=== PATIENT | male | born 1950 | race Caucasian/White ===

== ENCOUNTER 2018-09-27 07:47 | Day surgery (SDC) | payer MEDICARE, MEDICAID ==
[~2018-09-27 07:47] MED LIST: Lactated Ringers 1,000 ML IV SCH; Sodium Chloride 0.9% 10 ML Syringe FLUSH PRN; ceFAZolin 1 GM Vial IVPUSH ONE
[2018-09-27] MEDS ORDERED: Bupivacaine 0.25%/EPINEPHrine 1:200,000 30 ML SDV ONE (09:20)
[2018-09-27] MEDS ORDERED: ceFAZolin 1 GM Vial ONE (09:35)
[2018-09-27] MEDS ORDERED: Glycopyrrolate 0.2 MG/ML 2 ML SDV ONE (09:35)
[2018-09-27] MEDS ORDERED: fentaNYL 100 MCG/2 ML SDV ONE (09:35)
[2018-09-27] MEDS ORDERED: Midazolam 1 MG/ML 2 ML SDV ONE (09:36)
[2018-09-27] MEDS ORDERED: Ketamine 200 MG/20 ML MDV ONE (09:36)
[2018-09-27] MEDS ORDERED: Propofol 200 MG/20 ML SDV ONE (09:36)
[2018-09-27] MEDS ORDERED: Ondansetron 4 MG/2 ML SDV ONE (10:13)
[2018-09-27] MEDS ORDERED: Bacitracin Oint 1 GM U/D Packet ONE (10:20)
[2018-09-27] MEDS ORDERED: Bupivacaine 0.25%/EPINEPHrine 1:200,000 30 ML SDV INJECT ONE ×2 (10:20)
[2018-09-27] MEDS ORDERED: Ibuprofen 200 MG Tab PO PRN (10:57)
[2018-09-27] MEDS ORDERED: Morphine 2 MG/ML Syringe IVPUSH PRN (10:57)
--- NOTE | 2018-09-27 10:58 | OR ---
PREOPERATIVE DIAGNOSIS: Right lower lip cancer. POSTOPERATIVE DIAGNOSIS: Right lower lip cancer. PROCEDURE PROPOSED: Wedge resection of right lower lip. PROCEDURE DONE: Wedge resection of right lower lip. INDICATIONS: This is a 67-year-old gentleman, who has an obvious lesion on his right lower lip that is extremely suspicious for a lip cancer. It is felt that he is best served just to have this removed by wedge resection when he came in for recommended procedure. TECHNIQUE: The patient was brought to the operative suite, placed in the supine position. He was given MAC sedation per [employer], and his right lower lip area was then sterilely prepped and draped. The skin was then marked to do a pie-shaped wedge resection of the lesion. The lesion itself measured about 1.5 cm across. I took some normal lip maybe 2 mm on each side beyond the edge of the abnormality. The skin was marked both externally and internally. The area was then locally anesthetized with 0.25% Marcaine with epinephrine. The incision was then made with a 15 scalpel on the inner lip and outer lip. I then used cautery to dissect through the lip muscle and soft tissue, taking out a pie- shaped piece of tissue which was submitted for pathologic examination. Hemostasis was obtained with cautery, and the lip muscle and soft tissue were reapproximated with interrupted 3-0 chromic internally. The inner mucous membrane of the lip was reapproximated with inverted stitches of 3-0 chromic. I then reapproximated the vermilion border with a stitch of 5-0 Ethilon and reapproximated the external skin incision with interrupted 5-0 Ethilon. I then did the remainder of the lip that is visible to the outside with inverting and interrupted 3-0 chromic sutures until everything was back together nicely. This incision was then covered with antibiotic ointment, and there was minimal blood loss. He was then taken back to [facility] in good condition. SCM: 09/27/2018 10:32:56 MODL: 09/27/2018 10:50:46 /[id number]
== END 2018-09-27 11:25 | disposition home or self-care (01) ==
LOC: VM.SDS 07:47
PROVIDERS: ATTEND Surgery
DX: C44.00 Unspecified malignant neoplasm of skin of lip (principal); L57.0 Actinic keratosis; I10 Essential (primary) hypertension; F17.210 Nicotine dependence, cigarettes, uncomplicated; Z79.82 Long term (current) use of aspirin; Z79.899 Other long term (current) drug therapy
CPT/HCPCS: A9270-GY; J0690; J2250; J2405; J2704; J3010; J3490; J7120

== ENCOUNTER 2018-11-18 08:35 | Day surgery (SDC) | payer MEDICARE, MEDICAID ==
[~2018-11-18 08:35] MED LIST changes: -Sodium Chloride 0.9% 10 ML Syringe FLUSH PRN; -ceFAZolin 1 GM Vial IVPUSH ONE
[2018-11-18] MEDS ORDERED: fentaNYL 100 MCG/2 ML SDV ONE (10:33)
[2018-11-18] MEDS ORDERED: Propofol 200 MG/20 ML SDV ONE ×3 (10:33→11:55)
[2018-11-18] MEDS ORDERED: Midazolam 1 MG/ML 2 ML SDV ONE (12:31)
--- NOTE | 2018-11-18 17:56 | OR ---
DATE OF SURGERY: 11/18/2018. REFERRING PROVIDER: SAMANTHA Maher. PRE-OPERATIVE DIAGNOSES: Positive fit stool card. This is the patient's first colonoscopy. He denies any known family history of colon cancer. POST-OPERATIVE DIAGNOSES: 1. Total of 10 polyps removed (6 using hot snare and cautery and 4 using cold forceps). a. 1.5 cm sessile polyp in the transverse colon at about 150 cm once removing the scope. This was removed using hot snare, then the base was cauterized. b. 2 mm polyp at 110 cm, removed using cold forceps. c. 4 mm polyp at 100 cm, removed using cold forceps. d. 1 cm sessile polyp at 85 cm, removed using hot snare. e. 3 mm polyp at 80 cm, removed using cold forceps. f. 8 mm and 6 mm polyps at 60 cm, both removed using hot snare. g. 4 mm polyp at 55 cm, removed using cold forceps. h. 8 mm firmer polyp at 20 cm, removed using hot snare. This left somewhat of a divot present, so 1 clip was placed to approximate the colonic mucosa. i. 1 cm sessile polyp at 10 cm, removed using several passes of hot snare. 2. Mild internal hemorrhoids, not acutely inflamed. 3. Normal distal ileum. PROCEDURE: Colonoscopy with polypectomy x10 (6 using hot snare/cautery and 4 using cold forceps). SURGEON: Ayo Figueroa M.D. ANESTHESIA: Monitored anesthesia care. BOWEL PREP: Good. Linda is a 67-year-old male who was brought to the endoscopy suite after discussing risks and benefits of the procedure. Informed consent was obtained for conscious sedation and colonoscopy with or without biopsy and/or polypectomy. We also discussed possibility of missed lesions. Pre-procedure exam was unremarkable. IV, oxygen, and monitors were placed. The patient was placed in the left lateral decubitus position. Sedation was administered and a digital rectal exam was performed and unremarkable. Colonoscope was passed into the rectum and slowly advanced all the way to the cecum. Cecum was viewed and photographed. Ileocecal valve was intubated and distal ileum was normal in appearance. The colonoscope was slowly withdrawn and the mucosa was closed observed in a direct circumferential manner. The ascending colon was unremarkable. The proximal transverse colon revealed 1.5 cm sessile polyp at 150 cm, removed using several passes of hot snare, then the base of this was cauterized using the tip of the snare. The mid to distal transverse colon revealed 2 mm polyp at 110 cm and 4 mm polyp at 100 cm, both removed using cold forceps. In the descending colon, there was a 1 cm sessile polyp at 85 cm and 3 mm polyp at 80 cm, first one of those removed using hot snare and second using cold forceps. At 60 cm, 8 mm and 6 mm polyps removed using hot snare. At 55 cm, there was a 4 mm polyp, removed using cold forceps. The sigmoid colon revealed 8 mm firmer polyp, removed using hot snare. This did leave somewhat of a divot present. Therefore, 1 clip was placed to approximate the mucosal edges, this was placed in good position. No bleeding noted. At the rectosigmoid junction, there was another sessile 1 cm polyp, removed using several passes of hot snare. Retroflexion was performed and rectal mucosa revealed some mild internal hemorrhoids. Scope was removed. The patient tolerated the procedure well. The patient was monitored until that baseline status. Discharge instructions were reviewed and the patient was discharged in good condition. COMPLICATIONS: None. TOTAL TIME: 63 minutes. ESTIMATED BLOOD LOSS: 2 to 3 mL. RECOMMENDATIONS/FOLLOW-UP: We will await results of path report to determine ideal followup interval. We will have the patient hold his aspirin for about a week. He had been holding his aspirin for about 4 days previous to the procedure and did have a slight tendency to bleeding a little bit easier after polypectomies. I would like to kindly thank Sony Coleman for this referral. DMB: 11/18/2018 13:44:10 MODL: 11/18/2018 17:47:40 /[id number]
== END 2018-11-18 13:45 | disposition home or self-care (01) ==
LOC: VM.SDS 08:35
PROVIDERS: ATTEND Family Medicine
DX: D12.3 Benign neoplasm of transverse colon (principal); D12.4 Benign neoplasm of descending colon; D12.5 Benign neoplasm of sigmoid colon; D12.7 Benign neoplasm of rectosigmoid junction; K64.8 Other hemorrhoids; K63.89 Other specified diseases of intestine; I10 Essential (primary) hypertension; E78.00 Pure hypercholesterolemia, unspecified; F32.9 Major depressive disorder, single episode, unspecified; F17.210 Nicotine dependence, cigarettes, uncomplicated; Z79.82 Long term (current) use of aspirin; Z79.899 Other long term (current) drug therapy
CPT/HCPCS: 00811; 45380; 45385; 88305; 88341; 88342; J2250; J2704; J3010; J7120; 45384

== ENCOUNTER 2019-04-26 05:44 | Emergency (ER) | payer MEDICARE, MEDICAID ==
--- NOTE | 2019-04-26 06:21 | EDM.PDOC ---
ED HPI GENERAL MEDICAL PROBLEM - General Chief Complaint: General Stated Complaint: Weakness Time Seen by Provider: 04/26/19 06:13 Source of Information: Reports: Patient, EMS - History of Present Illness INITIAL COMMENTS - FREE TEXT/NARRATIVE: Linda is a 68 y/o male who is brought to the ER by EMS after his friend arrived to his house and he had complained of anterior pain between his shoulders that went across his chest. The pain had started last night while he was sitting and was constant most of the night until 0400. He rated it 8/10 at it's worst. He was a bit nauseated, but did not vomit. He denies ever having pain like this before. He did take an Advil PM at 0430 and on arrival to the ER he thinks the pain is actually gone now. The pain did keep him awake most of the night though. He also reports that he has had ongoing exercise intolerance over the last few weeks where he becomes a bit short of breath and even dizzy at times when he walks even a short distance. He has not seen cardiology. He did take ASA 325mg about 0430 this AM with the rest of his morning medications. His friend called [phone] when she stopped at his house this AM. 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 Other Dermatologic History: RIGHT LOWER LIP LESION - Past Surgical History Respiratory Surgical History: Reports: None GI Surgical History: Reports: Other (See Below) Other GI Surgeries/Procedures: splenectomy Endocrine Surgical History: Reports: None Other Oncologic Surgeries/Procedures: excision of SCC right lower lip Social & Family History - Family History Cardiac: Reports: NM (father) - Tobacco Use Smoking Status *Q: Current Every Day Smoker Tobacco Use Within Last Twelve Months: Cigarettes Years of Tobacco use: 50 Packs/Tins Daily Comment: 0.25 ED ROS GENERAL - Review of Systems Review Of Systems: See Below Constitutional: Reports: Weakness HEENT: Reports: No Symptoms Respiratory: Reports: Shortness of Breath (after exercise) Cardiovascular: Reports: Chest Pain, Lightheadedness (recently with exercise) Endocrine: Reports: Fatigue GI/Abdominal: Reports: Nausea : Reports: No Symptoms Musculoskeletal: Reports: Shoulder Pain Skin: Reports: No Symptoms Neurological: Reports: Dizziness Psychiatric: Reports: No Symptoms Hematologic/Lymphatic: Reports: No Symptoms Immunologic: Reports: No Symptoms ED EXAM, GENERAL - Physical Exam Exam: See Below General Appearance: Alert, WD/WN, No Apparent Distress Ears: Hearing Grossly Normal Nose: Normal Inspection, Normal Mucosa Throat/Mouth: Normal Inspection, Normal Lips, Normal Teeth, Normal Voice Head: Atraumatic, Normocephalic Neck: Normal Inspection, Supple, Non-Tender Respiratory/Chest: No Respiratory Distress, Lungs Clear, Normal Breath Sounds, Chest Non-Tender Cardiovascular: Regular Rate, Rhythm, No Edema, No Murmur GI/Abdominal: Normal Bowel Sounds, Soft, Non-Tender, No Organomegaly, No Distention, Other (well healed midline surgical scar) (Male) Exam: Deferred Rectal (Males) Exam: Deferred Back Exam: Normal Inspection Extremities: Normal Inspection, Normal Range of Motion, No Pedal Edema, Normal Capillary Refill, Other Neurological: Oriented, CN II-XII Intact, Normal Cognition, Normal Gait, No Motor/Sensory Deficits Psychiatric: Normal Affect, Normal Mood Skin Exam: Warm, Dry, Intact, Normal Color, No Rash Lymphatic: No Adenopathy EKG INTERPRETATION EKG Date: 04/26/19 Time: 06:22 Rhythm: NSR Rate (Beats/Min): 54 Mercer: Normal P-Wave: Present QRS: Normal ST-T: Normal QT: Normal EKG Interpretation Comments: Sinus Bradycardia Course - Vital Signs Text/Narrative:: 0613 The patient was seen by the SHEEP SORTER. Labs, CXR, and EKG were ordered. He had taken Aspirin prior to arrival so it was not repeated. 0745 Lab notified SHEEP SORTER that Troponin is critically high at 47.8. Patient reports he is starting to have midsternal chest pain return now. [facility] contacted. EKGs sent for review. Nitro 0.4mg SL given. 0800 BP dropped to 70/40s from Nitro, NS bolus started. Pain 3/10. Morphine 2mg IVP. 0812 SHEEP SORTER contacted [facility] again with patient status and spoke with Dr Etienne. Reviewed EKGs. Heparin 5000units IV bolus given. Analytics Analyst did not want additional gtt started. STEMI protocol initiated and patient accepted for transfer to the [facility]. 0815 Patient a bit nauseated. Zofran 4mg IVP ordered. Oxygen started. Pain currently 2/10. BP slightly improving, but quite labile in the 80-90s systolically. Patient packaged for transfer and left with [facility] in guarded condition. Last Recorded V/S: Last Vital Signs Temp 36.3 C 04/26/19 08:24 Pulse 60 04/26/19 08:24 Resp 16 04/26/19 08:24 BP 82/61 L 04/26/19 08:24 Pulse Ox 98 04/26/19 08:24 - Orders/Labs/Meds Orders: Active Orders 24 hr Category Date Time Status Cardiac Monitoring [RC] . DIRECTED Care 04/26/19 07:54 Ordered EKG Documentation Completion [RC] STAT Care 04/26/19 06:22 Ordered CBC W/O DIFF,HEMOGRAM [HEME] Q3D Lab 04/27/19 07:00 Ordered CBC W/O DIFF,HEMOGRAM [HEME] Q3D Lab 04/30/19 07:00 Ordered CBC W/O DIFF,HEMOGRAM [HEME] Q3D Lab 05/03/19 07:00 Ordered CBC W/O DIFF,HEMOGRAM [HEME] Q3D Lab 05/06/19 07:00 Ordered CBC W/O DIFF,HEMOGRAM [HEME] Q3D Lab 05/09/19 07:00 Ordered CBC W/O DIFF,HEMOGRAM [HEME] Q3D Lab 05/12/19 07:00 Ordered CBC W/O DIFF,HEMOGRAM [HEME] Q3D Lab 05/15/19 07:00 Ordered Morphine Med 04/26/19 07:54 Ordered 2 mg IVPUSH Q10M PRN Nitroglycerin [Nitrostat] Med 04/26/19 07:54 Ordered 0.4 mg SL Q5M PRN Sodium Chloride 0.9% @ 100 MLS/HR(1000ml) Med 04/26/19 08:00 Ordered Sodium Chloride 0.9% [Normal Saline] 1,000 ml IV ASDIRECTED Medication Orders Sodium Chloride (Normal Saline) 1,000 mls @ 100 mls/hr IV ASDIRECTED SUSHMA Last Admin: 04/26/19 07:55 Dose: 100 mls/hr Morphine Sulfate (Morphine) 2 mg IVPUSH Q10M PRN PRN Reason: Chest Pain Stop: 04/27/19 07:55 Last Admin: 04/26/19 08:07 Dose: 2 mg Nitroglycerin (Nitrostat) 0.4 mg SL Q5M PRN PRN Reason: Chest Pain Stop: 04/27/19 07:54 Last Admin: 04/26/19 07:52 Dose: 0.4 mg Labs: Laboratory Tests 04/26/19 04/26/19 04/26/19 Range/Units 06:35 06:35 06:35 WBC 15.9 H (4.0-10.0) x10^3/uL RBC 4.16 L (4.5-6.0) x10^6/uL Hgb 11.9 L (14.0-18.0) g/dL Hct 36.2 L (40.0-52.0) % MCV 87.0 (78.0-93.0) fL MCH 28.6 (26.0-32.0) pg MCHC 32.9 (32.0-36.0) g/dL RDW Coeff of Helene 14.9 (10.0-15.0) % Plt Count 375 (130-400) x10^3/uL Add Manual Diff Yes Neutrophils % (Manual) 55 (50-80) % Band Neutrophils % 2 (0-6) % Lymphocytes % (Manual) 34 (25-50) % Monocytes % (Manual) 7 (2-11) % Eosinophils % (Manual) 2 (0-4) % Platelet Estimate Adequate Giant Platelets Few H PT 10.5 (10.0-12.8) SEC INR 0.9 L (2.0-3.5) APTT 23.0 L (24.0-36.0) SEC Sodium 139 (136-145) mmol/L Potassium 4.7 (3.5-5.1) mmol/L Chloride 103 (98-107) mmol/L Carbon Dioxide 24 (21-32) mmol/L Anion Gap 16.7 (10-20) mmol/L BUN 19 H (7-18) mg/dL Creatinine 1.7 H (0.70-1.30) mg/dL Est Cr Clr Drug Dosing 44.29 mL/min Estimated GFR (MDRD) 40 Glucose 118 H (74-106) mg/dL Calcium 8.8 (8.5-10.1) mg/dL Corrected Calcium 9.52 (8.5-10.1) mg/dL Total Bilirubin 0.5 (0.2-1.0) mg/dL AST 207 H (15-37) U/L ALT 36 (16-63) U/L Alkaline Phosphatase 90 (46-116) U/L Troponin I 47.805 H* (<=0.056) ng/mL Total Protein 7.2 (6.4-8.2) g/dL Albumin 3.1 L (3.4-5.0) g/dL Globulin 4.1 Albumin/Globulin Ratio 0.76 Meds: Medications Generic Name Dose Route Start Last Admin Trade Name Freq PRN Reason Stop Dose Admin Sodium Chloride 1,000 mls @ 100 mls/hr 04/26/19 08:00 04/26/19 07:55 Normal Saline IV 100 mls/hr ASDIRECTED SUSHMA Administration Morphine Sulfate 2 mg 04/26/19 07:54 04/26/19 08:07 Morphine IVPUSH 04/27/19 07:55 2 mg Q10M PRN Administration Chest Pain Nitroglycerin 0.4 mg 04/26/19 07:54 04/26/19 07:52 Nitrostat SL 04/27/19 07:54 0.4 mg Q5M PRN Administration Chest Pain Discontinued Medications Generic Name Dose Route Start Last Admin Trade Name Freq PRN Reason Stop Dose Admin Heparin Sodium (Porcine) Confirm 04/26/19 08:28 04/26/19 08:29 Heparin Sodium Administered 04/26/19 08:29 Not Given Dose 5,000 units .ROUTE .STK-MED ONE Heparin Sodium (Porcine) 5,000 units 04/26/19 08:21 04/26/19 08:23 Heparin Sodium IVPUSH 04/26/19 08:22 5,000 units ONETIME ONE Administration Ondansetron HCl 4 mg 04/26/19 08:11 04/26/19 08:16 Zofran IVPUSH 04/26/19 08:12 4 mg ONETIME ONE Administration - Radiology Interpretation Free Text/Narrative:: CXR=LLL infiltrate Departure - Departure Time of Disposition: 08:15 Disposition: DC/Tfer to Acute Hospital 02 Condition: Good Clinical Impression: NM, Myocardial infarction, Pneumonia, STEMI (ST elevation myocardial infarction ) - Discharge Information *PRESCRIPTION DRUG MONITORING PROGRAM REVIEWED*: Not Applicable *COPY OF PRESCRIPTION DRUG MONITORING REPORT IN PATIENT DEBBIE: Not Applicable Referrals: PCP,Unknown [Primary Care Provider] - Forms: ED Department Discharge, Interfacility Transfer EMTALA Additional Instructions: -Transfer to [facility] to Dr Etienne via [facility] Sepsis Event Note - Focused Exam Vital Signs: Vital Signs Temp Pulse Resp BP BP Pulse Ox 04/26/19 08:24 36.3 C 60 16 82/61 L 98 04/26/19 08:17 61 18 77/47 L 97 04/26/19 08:08 60 19 95/57 L 97 04/26/19 08:01 62 17 75/47 L 97 04/26/19 07:52 141/63 H 04/26/19 07:46 59 L 19 125/69 98 04/26/19 05:45 36.6 C 58 L 16 123/73 98 Date Exam was Performed: 04/26/19 Time Exam was Performed: 08:33 - My Orders Last 24 Hours: My Active Orders 04/26/19 06:22 EKG Documentation Completion [RC] STAT 04/26/19 07:54 Cardiac Monitoring [RC] . DIRECTED Morphine 2 mg IVPUSH Q10M PRN Nitroglycerin [Nitrostat] 0.4 mg SL Q5M PRN 04/26/19 08:00 Sodium Chloride 0.9% @ 100 MLS/HR(1000ml) Sodium Chloride 0.9% [Normal Saline] 1 ,000 ml IV ASDIRECTED 04/27/19 07:00 CBC W/O DIFF,HEMOGRAM [HEME] Q3D 04/30/19 07:00 CBC W/O DIFF,HEMOGRAM [HEME] Q3D 05/03/19 07:00 CBC W/O DIFF,HEMOGRAM [HEME] Q3D 05/06/19 07:00 CBC W/O DIFF,HEMOGRAM [HEME] Q3D 05/09/19 07:00 CBC W/O DIFF,HEMOGRAM [HEME] Q3D 05/12/19 07:00 CBC W/O DIFF,HEMOGRAM [HEME] Q3D 05/15/19 07:00 CBC W/O DIFF,HEMOGRAM [HEME] Q3D - Assessment/Plan Last 24 Hours: My Active Orders 04/26/19 06:22 EKG Documentation Completion [RC] STAT 04/26/19 07:54 Cardiac Monitoring [RC] . DIRECTED Morphine 2 mg IVPUSH Q10M PRN Nitroglycerin [Nitrostat] 0.4 mg SL Q5M PRN 04/26/19 08:00 Sodium Chloride 0.9% @ 100 MLS/HR(1000ml) Sodium Chloride 0.9% [Normal Saline] 1 ,000 ml IV ASDIRECTED 04/27/19 07:00 CBC W/O DIFF,HEMOGRAM [HEME] Q3D 04/30/19 07:00 CBC W/O DIFF,HEMOGRAM [HEME] Q3D 05/03/19 07:00 CBC W/O DIFF,HEMOGRAM [HEME] Q3D 05/06/19 07:00 CBC W/O DIFF,HEMOGRAM [HEME] Q3D 05/09/19 07:00 CBC W/O DIFF,HEMOGRAM [HEME] Q3D 05/12/19 07:00 CBC W/O DIFF,HEMOGRAM [HEME] Q3D 05/15/19 07:00 CBC W/O DIFF,HEMOGRAM [HEME] Q3D
[2019-04-26 07:17] LABS: ANION GAP 16.7 mmol/L (10-20)
--- NOTE | 2019-04-26 07:40 | CR ---
[id number] RAD/RAD Chest PA or AP 1V EXAM: RAD Chest PA or AP 1V INDICATION: CHEST PAIN. COMPARISON: None. DISCUSSION: Cardiomediastinal silhouette is normal in size and contour. Hazy opacification overlying the left lung base. This may represent an infiltrate though also appears to overlie the associated rib. Pulmonary hyperinflation. No pneumothorax. IMPRESSION: Hazy opacification overlying the left lung base may represent infiltrates can be seen with pneumonia also appears to overlie the associated rib and underlying lesion is not excluded. Follow-up imaging after appropriate therapy in 4-6 weeks is recommended to ensure resolution. Carlyle Dye DO 04/26/19 0739 Thank you for allowing us to participate in the care of your patient.
[2019-04-26] MEDS: Nitroglycerin 0.4 MG Tab.SL SL PRN (07:52)
[2019-04-26] MEDS: Sodium Chloride 0.9% 1,000 ML IV SCH (07:55)
[2019-04-26] MEDS: Morphine 2 MG/ML Syringe IVPUSH PRN (08:07)
[2019-04-26] MEDS: Ondansetron 4 MG/2 ML SDV IVPUSH ONE (08:16)
[2019-04-26] MEDS: Heparin Sodium 5,000 Units/ML Vial IVPUSH ONE (08:23)
[2019-04-26] MEDS: Heparin Sodium 5,000 Units/ML Vial ONE (08:29)
== END 2019-04-26 08:42 | disposition short-term general hospital (02) ==
LOC: VM.ED 05:44
DX: I21.3 ST elevation (STEMI) myocardial infarction of unspecified site (principal); J18.9 Pneumonia, unspecified organism; R11.0 Nausea; R79.89 Other specified abnormal findings of blood chemistry; I10 Essential (primary) hypertension; E78.00 Pure hypercholesterolemia, unspecified; F17.210 Nicotine dependence, cigarettes, uncomplicated; Z79.899 Other long term (current) drug therapy
CPT/HCPCS: 36415; 71045; 80053; 84484; 85025; 85610; 85730; 93005; 93010; 96361; 96374; 96375; 99284; 99285; A9270; J1644; J2270; J2405; J7030